=== PATIENT | male | born 1970 | race Caucasian/White ===

== ENCOUNTER 2024-06-23 13:10 | Emergency (ER) | payer OTHER ==
[~2024-06-23] VITALS: Ht 160 cm; Wt 78.5 kg
[2024-06-23] MEDS ORDERED: KETOROLAC TROMETHAMINE 60 MG/2 ML VIAL IM ONE (13:45)
[2024-06-23] MEDS ORDERED: CYCLOBENZAPRINE HCL 10 MG TAB PO ONE (13:45)
[2024-06-23] MEDS ORDERED: LIDOCAINE HCL 4% 1 EACH PATCH TD ONE (13:45)
[2024-06-23] MEDS ORDERED: PRAZOSIN HCL5 MG PO (14:11)
[2024-06-23] MEDS ORDERED: FLUOXETINE HCL60 MG PO (14:11)
[2024-06-23] MEDS ORDERED: ZYRTEC10 MG PO (14:12)
[2024-06-23] MEDS ORDERED: TRAZODONE HCL100 MG PO (14:12)
[2024-06-23] MEDS ORDERED: VENTOLIN HFA18 GM INH (14:12)
[2024-06-23] MEDS ORDERED: CYCLOBENZAPRINE10 MG PO (15:13)
[2024-06-23] MEDS ORDERED: LIDODERM1 EACH TOP (15:13)
[2024-06-23] MEDS ORDERED: KETOROLAC TROME10 MG PO (15:13)
[2024-06-23 15:36] VITALS: BP 119/90
[2024-06-23] MEDS ORDERED: LIDOCAINE PATCH REMOVAL 1 EA TD SCH (21:00)
== END 2024-06-23 15:36 | disposition home or self-care (01) ==
LOC: ED 13:10
DX: S39.92XA Unspecified injury of lower back, initial encounter (principal); M51.36 Other intervertebral disc degeneration, lumbar region; W11.XXXA Fall on and from ladder, initial encounter; Z79.899 Other long term (current) drug therapy
CPT/HCPCS: 72100; 96372; 99283-25; A9270; J1885

== ENCOUNTER 2025-01-08 11:33 | Emergency (ER) | payer OTHER ==
[~2025-01-08] VITALS: Ht 160 cm; Wt 81.0 kg
[~2025-01-08 11:33] MED LIST: CYCLOBENZAPRINE10 MG PO; FLUOXETINE HCL60 MG PO; KETOROLAC TROME10 MG PO; LIDODERM1 EACH TOP; PRAZOSIN HCL5 MG PO; TRAZODONE HCL100 MG PO; VENTOLIN HFA18 GM INH; ZYRTEC10 MG PO
[2025-01-08] MEDS ORDERED: HYDROCODON-ACE1 EA10 PO (12:00)
[2025-01-08 13:09] VITALS: BP 109/87
== END 2025-01-08 12:50 | disposition home or self-care (01) ==
LOC: ED 11:33
DX: S43.401A Unspecified sprain of right shoulder joint, initial encounter (principal); W10.9XXA Fall (on) (from) unspecified stairs and steps, initial encounter; Z79.899 Other long term (current) drug therapy
CPT/HCPCS: 73030; 99283

== ENCOUNTER 2025-05-18 07:38 | Day surgery (SDC) | payer OTHER ==
[~2025-05-18] VITALS: Ht 160 cm; Wt 77.0 kg
[~2025-05-18 07:38] MED LIST changes: +CEFAZOLIN SODIUM 2 GM/20 ML SYR IV SCH; +DEXAMETHASONE SOD PHOS 4 MG/ML VIAL ONE; +HYDROCODON-ACE1 EA10 PO; +IBLOOD GLUCOSE TEST STRIP 1 EA TEST VI PRN; +IBU800 MG PO; +LACTATED RINGER'S 1,000 ML IV SCH; +LIDOCAINE HCL 1% 5 ML SDV INJ ONE; +LIDOCAINE HCL 2% 5 ML SDV ONE; +MIDAZOLAM HCL 2 MG/2 ML VIAL ONE; +Ropivacaine HCl 0.5% 30 ML VIAL ONE; +SODIUM CHLORIDE 0.9% 40 ML IV ONE; +VITAMIN B-121000 MC3 PO
[2025-05-18 07:56] VITALS: BP 116/66
--- NOTE | 2025-05-18 08:08 | NUR ---
SISTER DROPPED OFF AND WILL NURSE INSTRUCTOR.
--- NOTE | 2025-05-18 08:35 | NUR ---
PHONE OPERATOR AP IN TO TALK WITH PT AND DO R SHOULDER BLOCK SEE ANESTHESIA RECORD.
--- NOTE | 2025-05-18 09:29 | NUR ---
ELSY BLANK IN TO TALK WITH PT. DR CONTRERAS IN TO TALK WITH PT AND GEE.
[2025-05-18] MEDS ORDERED: LIDOCAINE HCL 2% 5 ML SDV ONE (09:33)
[2025-05-18] MEDS ORDERED: DEXAMETHASONE SOD PHOS 4 MG/ML VIAL ONE (09:33)
[2025-05-18] MEDS ORDERED: ROCURONIUM BROMIDE 50 MG/5 ML SYR ONE (09:34)
[2025-05-18] MEDS ORDERED: SUCCINYLCHOLINE IN 0.9% NACL 200 MG/10 ML SYRINGE ONE (09:34)
[2025-05-18] MEDS ORDERED: LIDOCAINE HCL 4% 5 ML AMP ONE (09:34)
[2025-05-18] MEDS ORDERED: fentaNYL citrate 100 MCG/2 ML VIAL ONE (09:39)
[2025-05-18] MEDS ORDERED: DICLOFENAC SOD 75 MG TABEC PO SCH (10:25)
[2025-05-18] MEDS ORDERED: HYDROCODONE/ACETA 7.5/325 TAB PO PRN (10:30)
[2025-05-18] MEDS ORDERED: HYDROCODON-ACE1 EA11 PO (10:32)
--- NOTE | 2025-05-18 10:41 | NUR ---
05/18/25 1041 Gloria Higginbotham 1031-PT ARRIVES TO PACU, VIA STRETCHER, RESTING SEMI FOWLERS, PT A+O X4, DENIES PAIN OR NAUSEA. VSS ON RA. 1035-PT'S DESATS TO 87% WHILE AWAKE DESPITE COUGHING AND DEEP BREATHING, PLACED ON 2L VIA NC, SATS IMPROVED TO 95%. CRYO CUFF APPLIED TO RT SHOULDER.
[2025-05-18 11:18] VITALS: BP 118/64
--- NOTE | 2025-05-18 11:22 | NUR ---
RETURNED ICE WATER IN HAND. CALL LIGHT TO L HAND. NO QUESTIONS.
[2025-05-18 12:11] VITALS: BP 135/70
--- NOTE | 2025-05-18 12:52 | NUR ---
1200 ASSIST TO BR VOIDS QS. HAVE REVIEWED CRYOCUFF USAGE ICE WATER PLUG IN HOW TO PUT ON SHOULDER. SLING/IMMOBILIZER TO KEEP ON AND HOW TO PUT ON.
--- NOTE | 2025-05-18 12:54 | NUR ---
1220 HAVE REVIEWED COMPUTER PRINT OUT INSTRUCTIONS WITH PT. ALSO DR CONTRERAS OFFICE INSTRUCTION SHEET. NO QUESTIONS. ENC TO READ AT HOME AGAIN. CALL OFFICE IF ANY FURTHER QUESTIONS. SISTER STAYING WITH PT NEXT COUPLE DAYS. AFTER HRS PHONE NUMBER GIVEN ALSO.
[2025-05-18] MEDS ORDERED: SEVOFLURANE 250 ML BTL INH ONE (15:11)
--- NOTE | 2025-05-19 08:31 | OR ---
[facility] [address], [place] [address] Signed DATE OF OPERATION: 05/18/2025 SURGEON: Castillo Hilton MD PREOPERATIVE DIAGNOSIS: Rotator cuff tear, right shoulder. POSTOPERATIVE DIAGNOSIS: Rotator cuff tear, right shoulder. PROCEDURE PERFORMED: Right shoulder arthroscopy with rotator cuff repair. VALET PARKER: Sana Lal PA-C. Sana was present and critical for all portions of procedure. ANESTHESIA: General. BLOOD LOSS: Minimal. IMPLANTS: 4.75 SwiveLock with FiberTape. BRIEF HISTORY: Vinnie is a 54-year-old gentleman with pain and weakness in his shoulder. MRI was consistent with a partial to full-thickness tear of the rotator cuff in the supraspinatus tendon. Risks, benefits, and alternatives were discussed with the patient of surgery. He had understood and wished to proceed. Once consent was obtained, he was taken to the operating room. After adequate anesthesia, he was placed in a beach chair position. All downside pressure points were well padded. The right shoulder was prepped and draped in a standard sterile fashion. Shoulder was injected with 15 mL 0.25% Marcaine with epinephrine. The standard posterior portal was made and the scope was introduced in the shoulder. ARTHROSCOPIC FINDINGS: Moderate synovitis was noted throughout the shoulder. There was an undersurface tear of the supraspinatus measuring about 1.5 cm. This was partial to full thickness. The Electronically Signed By: CASTILLO HILTON MD 05/19/25 0831 PATIENT NAME: VINNIE CREWS OPERATIVE REPORT DATE OF : 68 REPORT #: [id number] PHYSICIAN: CASTILLO HILTON MD PCP: ALEJANDRINA RODRIGUEZ MD REPORT IS CONFIDENTIAL AND NOT TO BE RELEASED WITHOUT AUTHORIZATION [facility] [address], [place] [address] Signed humeral surfaces were intact. Biceps, biceps anchor and labrum were intact. The subacromial space showed minimal bursitis posteriorly, but no other significant findings. The rotator cuff tear was located. DESCRIPTION OF THE SURGERY: The diagnostic arthroscopy was undertaken as noted above. The scope was withdrawn, placed in subacromial space a standard lateral portal was made. The rotator cuff tear was easily identifiable, was debrided of nonviable tissue. The tuberosity was then debrided down to a good bleeding surface. Once this was accomplished, a number two FiberTape was placed in inverted mattress configuration through the tear and the two tails were brought into the 4.75 SwiveLock. This was placed at the margin of the tuberosity and the tear was appropriately tensioned. The anchor was then driven into the bone and the screw was set. The insertion handle was removed and the suture tails were cut. There was excellent stability of the tear after the completion of the repair. There was excellent bleeding as well. The scope was withdrawn. Portals were closed with 3-0 nylon and dressed with Allevyn and OpSite. He tolerated the procedure well. All sponge, needle, and instrument counts were correct. Castillo Hilton MD BA/MODL /[id number] Copies: ~ Electronically Signed By: CASTILLO HILTON MD 05/19/25 0831 PATIENT NAME: VINNIE CREWS OPERATIVE REPORT DATE OF : 68 REPORT #: [id number] PHYSICIAN: CASTILLO HILTON MD PCP: ALEJANDRINA RODRIGUEZ MD REPORT IS CONFIDENTIAL AND NOT TO BE RELEASED WITHOUT AUTHORIZATION
== END 2025-05-18 12:20 | disposition home or self-care (01) ==
LOC: DS 07:38
PROVIDERS: ATTEND Specialist
PROC: 0LM14ZZ Reattachment of Right Shoulder Tendon, Percutaneous Endoscopic Approach (ICD-10-PCS; principal; 2025-05-18 09:00)
DX: M75.121 Complete rotator cuff tear or rupture of right shoulder, not specified as traumatic (principal); M65.911 Unspecified synovitis and tenosynovitis, right shoulder; G89.18 Other acute postprocedural pain; I10 Essential (primary) hypertension; Z87.891 Personal history of nicotine dependence; Z79.899 Other long term (current) drug therapy; Z90.49 Acquired absence of other specified parts of digestive tract
CPT/HCPCS: 01630; 64415; C1713; J0330; J0690; J1100; J2003; J2250; J2405; J2704; J2795; J3010; J3490; J7121